=== PATIENT | female | born 1970 | race Two or more races ===

== ENCOUNTER 2021-06-28 04:52 | Day surgery (SDC) | payer OTHER ==
[2021-06-22 16:34] VITALS: BMI 32.1
[2021-06-28 09:18] VITALS: TEMP 97.2
[2021-06-28 09:53] VITALS: BP 115/75; PULSE 70
== END 2021-06-28 09:53 | disposition home or self-care (01) ==
LOC: JASU-ENDO 04:52
PROVIDERS: ATTEND Internal Medicine Gastroenterology
PROC: 0DJD8ZZ Inspection of Lower Intestinal Tract, Via Natural or Artificial Opening Endoscopic (ICD-10-PCS; principal; 2021-06-28 08:55)
DX: Z12.11 Encounter for screening for malignant neoplasm of colon (principal); K64.8 Other hemorrhoids; K57.30 Diverticulosis of large intestine without perforation or abscess without bleeding
CPT/HCPCS: 81025

== ENCOUNTER 2021-11-07 04:12 | Day surgery (SDC) | payer OTHER ==
[2021-11-03 16:21] VITALS: BMI 32.2
[2021-11-07] MEDS ORDERED: MIDAZOLAM HCL 2 MG/2 ML SINGLE DOSE VIAL ONE (08:34)
[2021-11-07] MEDS ORDERED: PROPOFOL 20 ML ONE ×2 (08:46→09:25)
[2021-11-07 10:50] VITALS: BP 120/70; PULSE 70; TEMP 98
== END 2021-11-07 10:45 | disposition home or self-care (01) ==
LOC: JASU-SURG 04:12
PROVIDERS: ATTEND Urology
PROC: 0TF3XZZ Fragmentation in Right Kidney Pelvis, External Approach (ICD-10-PCS; principal; 2021-11-07 09:00)
DX: N20.0 Calculus of kidney (principal)
CPT/HCPCS: 81025